=== PATIENT | male | born 1985 | race African-American/Black ===

== ENCOUNTER 2021-04-13 18:58 | Day surgery (SDC) | payer OTHER ==
[~2021-04-13] VITALS: Ht 180.3 cm; Wt 120.3 kg
[2021-04-13] MEDS ORDERED: MORPHINE 2 MG/ML 1ML VIAL (J2270) IV ONE (19:45)
[2021-04-13] MEDS ORDERED: HOME MED LIST COMPLETE! XX SCH (20:40)
[2021-04-13] MEDS ORDERED: BUPIVACAINE/EPIN 0.25% 30 ML VIAL As Ordered ONE (21:21)
[2021-04-13] MEDS ORDERED: ZOSYN 3.375GM VIAL (J2543) As Ordered ONE (21:49)
[2021-04-13] MEDS ORDERED: LIDOCAINE 2% 100MG/5ML SDV (FOR ANES.) As Ordered ONE (21:59)
[2021-04-13] MEDS ORDERED: SUGAMMADEX SODIUM 500 MG/5 ML VIAL (BRIDION) As Ordered ONE (21:59)
[2021-04-13] MEDS ORDERED: ONDANSETRON 4MG/2ML VIAL As Ordered ONE (21:59)
[2021-04-13] MEDS ORDERED: KETOROLAC 60MG 2ML VIAL As Ordered ONE (21:59)
[2021-04-13] MEDS ORDERED: MIDAZOLAM INJ 2MG/2ML VIAL (J2250 PER 1MG) As Ordered ONE (21:59)
[2021-04-13] MEDS ORDERED: propofoL 200 MG/20 ML VIAL As Ordered ONE (21:59)
[2021-04-13] MEDS ORDERED: dexameTHASONE 4 MG/ML 1ML VIAL (J1100 PER 1MG) As Ordered ONE (21:59)
[2021-04-13] MEDS ORDERED: ROCURONIUM BROMIDE 50 MG/5 ML VIAL As Ordered ONE (21:59)
[2021-04-13] MEDS ORDERED: fentaNYL 250 MCG/5 ML INJECTION (J3010) As Ordered ONE (21:59)
[2021-04-13] MEDS ORDERED: ACETAMINOPHEN 1000MG 100ML IV BTL (OFIRMEV) (J0131 PER 10MG) As Ordered ONE (22:11)
[2021-04-13] MEDS ORDERED: PERCOCET 5MG/325MG TAB PO PRN ×3 (22:55→23:00)
[2021-04-13] MEDS ORDERED: LR 1,000 ML IV SCH ×2 (22:55→23:00)
[2021-04-13] MEDS ORDERED: ONDANSETRON 4 MG TAB PO PRN (22:55)
[2021-04-13] MEDS ORDERED: MORPHINE 2 MG/ML 1ML VIAL (J2270) IV PRN ×2 (22:55)
[2021-04-13] MEDS ORDERED: ONDANSETRON 4MG/2ML VIAL IV PRN (23:00)
[2021-04-13] MEDS ORDERED: METOCLOPRAMIDE INJ 10MG/2ML VIAL (J2765 PER 1) IV PRN (23:00)
[2021-04-13] MEDS ORDERED: fentaNYL 100 MCG/2 ML INJECTION (J3010) IV PRN (23:00)
[2021-04-14] VITALS (9 sets, daily range): BP systolic 113–133; BP diastolic 66–79
[2021-04-14] MEDS: PIPERACILLIN/TAZOBACTAM SOD 3.375 GM in D5W MINI-BAG PLUS 50 ML IV SCH ×4 (04:11→21:29)
[2021-04-14] MEDS: KETOROLAC 30 MG/ML 1ML VIAL IV SCH ×4 (04:11→21:29)
[2021-04-14] MEDS ORDERED: PANTOPRAZOLE 40MG VIAL (C9113 PER 1) IV SCH (09:00)
--- NOTE | 2021-04-14 09:03 | IPNPDOC ---
Text Note Date of Service The patient was seen on 04/14/21. NOTE General surgery. Dr Feliciano The patient is a 36-year-old male status post laparoscopic appendectomy 04/13/[address] Feliciano. Currently the patient is in bed, he has not been out of bed yet. Tolerating clear liquids. States pain is controlled. No bowel movement yet Afebrile VSS MMM Lungs clear to auscultation S1-S2 regular rate rhythm Abdomen is soft, mild tenderness around surgical sites, surgical sites are clean/dry/intact. No edema No new labs Assessment/plan Acute appendicitis status post laparoscopic appendectomy 04/13/[address] Feliciano. The patient reports pain is controlled Tolerating clear liquids, will advance to regular diet IV Zosyn Encourage out of bed and ambulation. VS,Fishbone, I+O VS, Fishbone, I+O Vital Signs Date Time Temp Pulse Resp B/P (MAP) Pulse Ox O2 Delivery O2 Flow Rate FiO2 04/14/21 07:00 97.8 88 18 133/72 (92) 96 Room Air 04/13/21 23:15 2.0 I&O- Last 24 Hours up to 6 AM 04/14/21 05:59 Intake Total 2080 ml Output Total 800 ml Balance 1280 ml Letitia Larsen Apr 14, 2021 08:09
--- NOTE | 2021-04-14 22:43 | RO ---
OPERATIVE NOTE DATE OF OPERATION: 04/13/2021 PREOPERATIVE DIAGNOSIS: Acute appendicitis. POSTOPERATIVE DIAGNOSIS: Acute appendicitis. PROCEDURE: Laparoscopic appendectomy. SURGEON: Alan Feliciano MD LAWYER: ANESTHESIA: General endotracheal anesthesia. ESTIMATED BLOOD LOSS: Minimal. FLUIDS: Crystalloid. BRIEF PROCEDURE SUMMARY: The patient was brought to the operating room, was given general anesthesia. After adequate anesthesia and preoperative antibiotics were given, the patient was prepped and draped in the usual sterile fashion. Next, a supraumbilical incision was made with a skin knife. Blunt dissection was carried down to fascia and Veress needle placed into the abdominal cavity and insufflated to 15 mm of pressure. A dilating 12 mm trocar was placed; and under direct visualization, suprapubic and left abdominal wall 5 mm trocars were placed. Next, the patient was placed in Trendelenburg, left side down and the appendix was visualized, was distended, swollen and was mobilized with harmonic scalpel along the peritoneum and then the mesentery was transected using the harmonic scalpel down to the base of the appendix/cecal wall. Once this was mobilized adequately, the base was transected using a VANNA stapler, placed in an Endo catch bag and brought out through the umbilicus. The right lower quadrant was copiously irrigated until clear. There was some minimal oozing along the staple line, which was controlled with some minimal harmonic scalpel treatment, but otherwise, it was clean, dry, intact and no abscess or drainage was appreciated. However, the trocars were removed under direct visualization and there was some bleeding at the trocar along the left lateral rectum muscle that was noticed and stopped with minimal pressure. However, given this bleeding, I did reinsert the umbilical trocar and did evaluate this intraabdominally and there was some minimal blood coming from the trocar site, but this was watched for quite some time. The abdomen was desufflated and then re-insufflated, taking care to look at this area and revealed no further bleeding. 0 Vicryl was used to close the fascia at the umbilicus and all sites were closed with 4-0 Vicryl. Steri-Strips and dry sterile dressing were applied. The patient was awaken, extubated and brought to the recovery room awake, alert and hemodynamically stable. Sponge and needle counts correct times two.
[2021-04-15 02:00] VITALS: BP 139/83
[2021-04-15] MEDS: KETOROLAC 30 MG/ML 1ML VIAL IV SCH ×2 (03:41→09:12)
[2021-04-15] MEDS: PIPERACILLIN/TAZOBACTAM SOD 3.375 GM in D5W MINI-BAG PLUS 50 ML IV SCH ×2 (03:41→09:12)
[2021-04-15 04:00] VITALS: BP 128/80
[2021-04-15 06:00] VITALS: BP 125/73
[2021-04-15] MEDS ORDERED: PERCOCET PO (09:02)
--- NOTE | 2021-04-15 15:45 | DS.PDOC ---
Discharge Summary General Date of Admission 04/13/21 Date of Discharge 04/15/21 Discharge Summary General surgery. Dr Feliciano PROCEDURES PERFORMED DURING STAY: laparoscopic appendectomy 04/13/[address] Feliciano. ADMITTING DIAGNOSES: Acute appendicitis DISCHARGE DIAGNOSES: Acute appendicitis status post laparoscopic appendectomy 04/13/[address] Feliciano. HISTORY OF PRESENT ILLNESS: The patient is a 36-year-old male who was transferred from [facility] emergency department with acute appendicitis. The patient had reported his pain had started the evening prior, 04/12/2021. The patient was reporting abdominal pain and distention worse in the right lower q uadrant, imaging in [facility] indicated acute appendicitis. HOSPITAL COURSE: The patient's admission to the general surgery service was arranged, the patient was taken to the operating room 04/13/2021 for laparoscopic appendectomy as per Dr Feliciano. Patient tolerated the procedure well. The patient was started on clear liquids diet postoperatively, advance to regular diet 04/14/2021. The patient was continued on IV Zosyn postoperatively. The patient remained afebrile. The patient was out of bed and ambulating around the room. The patient reported he had some increased pain on the evening of 04/14 but when he received a dose of IV Toradol the pain improved. By the morning of discharge 04/15, the patient states his pain is well-controlled. He is eating regular diet. He has been out of bed ambulating. DISCHARGE MEDICATIONS: Please see below. ALLERGIES: Please see below. PHYSICAL EXAMINATION ON DISCHARGE: VITAL SIGNS: 98.2, 62, 16, blood pressure 125/73, 97% room air. GENERAL: Awake and alert, no acute distress HEENT: MMM CARDIOVASCULAR EXAMINATION: S1-S2 regular rate and rhythm RESPIRATORY EXAMINATION: Lungs are clear to auscultation ABDOMINAL EXAMINATION: Soft, nondistended, some mild tenderness around incision sites only. All incisions with dressings clean/dry/intact EXTREMITIES: No edema SKIN: No rashes LABORATORY DATA: No new labs IMAGING: No new imaging DISPOSITION: Discharge home DISCHARGE INSTRUCTIONS: Discharge home Activity as tolerated with no heavy lifting, pushing, pulling greater than 20 pounds for 2 weeks. Regular diet Continue to keep incisions clean and dry. Dry dressing as needed. Okay to shower but no bathing or swimming. Percocet 5/325 1 tablet p.o. every 6 hours as needed #10, I stop #[id number] Ibuprofen 600 mg p.o. every 6 hours as needed. Follow-up with Dr. Feliciano's office in 2 weeks. Call the office with any questions or concerns, wound drainage, fevers, chills, nausea or vomiting. DISCHARGE CONDITION: Stable. TIME SPENT ON DISCHARGE: Greater than 30 minutes. Vital Signs/I&Os Vital Signs Date Time Temp Pulse Resp B/P (MAP) Pulse Ox O2 Delivery O2 Flow Rate FiO2 04/15/21 06:00 98.2 62 16 125/73 (90) 97 Room Air 04/13/21 23:15 2.0 I&O- Last 24 Hours up to 6 AM 04/15/21 05:59 Intake Total 1270 ml Output Total 650 ml Balance 620 ml Discharge Medications Scheduled PRN Oxycodone/Acetaminophen (Oxycodone-Acetaminophen 5-325) 1 Each Tablet, 1 TAB PO Q6HP PRN for MODERATE PAIN (PS 5-7) Allergies Coded Allergies: No Known Allergies (Verified Allergy, Unknown, 04/13/21) Letitia Larsen Apr 15, 2021 15:45
== END 2021-04-15 12:15 | disposition home or self-care (01) ==
LOC: M ED 18:58 → M SDC 18:59 → M MSPAV 19:00 → M SDC 04-15 12:15
PROVIDERS: ATTEND Surgery
DX: K35.890 Other acute appendicitis without perforation or gangrene (principal); E66.9 Obesity, unspecified
CPT/HCPCS: 44970; 88304; 96365; 96366; 96375; 96376; 99284; J0131; J1100; J1885; J2250; J2405; J2543; J3010

== ENCOUNTER 2021-04-21 10:47 | Emergency (ER) | payer OTHER ==
[~2021-04-21] VITALS: Ht 180.3 cm; Wt 113.6 kg
[~2021-04-21 10:47] MED LIST: PERCOCET PO
[2021-04-21 12:28] LABS: BASO # 0.1 10^3/uL (0.0-0.2); BASO % 0.6 % (0.0-1.0); EOS # 0.3 10^3/uL (0.0-0.5); EOS % 2.7 % (0.0-3.0); HEMATOCRIT 44.3 % (42.0-52.0); HEMOGLOBIN 14.6 g/dl (13.5-17.5); LYMPH # 3.2 10^3/uL (1.5-5.0); LYMPH % 33.4 % (24.0-44.0); MONO # 0.9 10^3/uL (0.0-0.8); MONO % 9.1 % (2.0-8.0); NEUTROPHILS # 5.2 10^3/uL (1.5-8.5); NEUTROPHILS % 53.8 % (36.0-66.0); PLATELET COUNT, AUTOMATED 284 10^3/uL (150-450); RED BLOOD COUNT 4.87 10^6/uL (4.30-6.10); WHITE BLOOD COUNT 9.6 10^3/uL (4.0-10.0)
[2021-04-21 12:52] LABS: ALBUMIN 3.6 GM/DL (3.2-5.2); ALT/SGPT 83 U/L (12-78); BILIRUBIN,DIRECT 0.1 MG/DL (0.0-0.2); BILIRUBIN,TOTAL 0.3 MG/DL (0.2-1.0); BLOOD UREA NITROGEN 11 MG/DL (7-18); CALCIUM LEVEL 9.2 MG/DL (8.5-10.1); CARBON DIOXIDE LEVEL 27 MEQ/L (21-32); CHLORIDE LEVEL 108 MEQ/L (98-107); GLOMERULAR FILTRATION RATE > 60.0 (>60); GLUCOSE, FASTING 101 MG/DL (70-100); LIPASE 100 U/L (73-393); POTASSIUM SERUM 4.1 MEQ/L (3.5-5.1); SODIUM LEVEL 140 MEQ/L (136-145); TOTAL PROTEIN 7.6 GM/DL (6.4-8.2)
[2021-04-21 13:49] LABS: CK-MB VALUE MASS 1.4 NG/ML (<3.6); CPK CREATINE PHOSPHOKINASE 270 U/L (39-308); MB/CK RELATIVE INDEX 0.52 (< OR =4); TROPONIN I < 0.02 NG/ML (< 0.10)
[2021-04-21 13:56] LABS: RSV AMPLIFICATION NEGATIVE (NEGATIVE)
--- NOTE | 2021-04-21 14:11 | REP ---
INDICATION: recent surgery, r sided rib pain, short of breath. COMPARISON: None. TECHNIQUE: PA and lateral FINDINGS: The lung hoyos are hypoexpanded which crowds the basilar vascularity and accentuates the cardiac silhouette size. With this exception, the lung hoyos are clear and the heart is not enlarged. The pleural angles are sharp. The osseous structures are within normal limits. IMPRESSION: There is no acute cardiopulmonary disease. Exam limitations as described above. <Electronically signed by Christopher Vallecillo > 04/21/21 [id number]
[2021-04-21] MEDS ORDERED: ISOVUE-370 76% 100ML VIAL As Ordered ONE (14:15)
--- NOTE | 2021-04-21 14:59 | REP ---
INDICATION: R pleuritic chest pain, short of breath COMPARISON: None. TECHNIQUE: CT angiography attention pulmonary arteries after the intravenous administration of 75 cc Isovue 370. FINDINGS: There is excellent visualization of the pulmonary arterial vasculature. There are no focal filling defects present that would be considered consistent with acute pulmonary emboli. There are no pleural or pericardial effusions. There is no mediastinal or hilar adenopathy. The imaged upper abdomen and imaged osseous structures are within normal limits. Evaluation of the lung hoyos shows no abnormal nodules, masses, or opacities. IMPRESSION: CT findings are within normal limits. <Electronically signed by Christopher Vallecillo > 04/21/21 [id number]
[2021-04-21 16:15] VITALS: BP 142/89
--- NOTE | 2021-04-22 04:55 | ECGEPIP ---
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
== END 2021-04-21 16:25 | disposition home or self-care (01) ==
LOC: M ED 10:47
DX: R09.1 Pleurisy (principal); R06.00 Dyspnea, unspecified; R00.1 Bradycardia, unspecified
CPT/HCPCS: 36415; 71046; 71275; 80048; 80076; 81001; 82550; 82553; 83690; 84484; 85025; 85379; 87631; 93005; 99284; Q9967